=== PATIENT | female | born 1975 | race Caucasian/White ===

== ENCOUNTER 2018-07-24 07:15 | Inpatient (IN) | payer OTHER ==
[~2018-07-24] VITALS: Ht 162.6 cm; Wt 92.1 kg
[2018-07-24] MEDS ORDERED: CLONAZEPAM0.5 MG PO (08:59)
[2018-07-24] MEDS ORDERED: IBRA PO (08:59)
[2018-07-24] MEDS ORDERED: AMBIEN10 MG PO (08:59)
[2018-07-24] MEDS ORDERED: NEXIUM 24HR20 M1 PO (09:00)
[2018-07-24] MEDS ORDERED: VIBATIV750 MG PO (09:01)
[2018-07-24] MEDS ORDERED: MULTIVITAMINS1 EAC9 PO (09:01)
[2018-07-24] MEDS ORDERED: DOLOGESIC 500-1 EACH PO (09:01)
[2018-08-01] MEDS ORDERED: AVAPRO300 MG PO (15:11)
== END 2018-08-02 11:57 | DRG 734 ==
LOC: O/R 07-31 04:40 → OB/GYN 07-31 04:40 → SURH 07-31 07:00 → OB/GYN 07-31 13:12
PROVIDERS: ADMIT Obstetrics & Gynecology Gynecologic Oncology
PROC: 0UT9FZZ Resection of Uterus, Via Natural or Artificial Opening With Percutaneous Endoscopic Assistance (ICD-10-PCS; 2018-07-31)
PROC: 0UT7FZZ Resection of Bilateral Fallopian Tubes, Via Natural or Artificial Opening With Percutaneous Endoscopic Assistance (ICD-10-PCS; 2018-07-31)
PROC: 0UT2FZZ Resection of Bilateral Ovaries, Via Natural or Artificial Opening With Percutaneous Endoscopic Assistance (ICD-10-PCS; 2018-07-31)
PROC: 07TC4ZZ Resection of Pelvis Lymphatic, Percutaneous Endoscopic Approach (ICD-10-PCS; principal; 2018-07-31 07:00)
DX: C54.1 Malignant neoplasm of endometrium (principal); K50.90 Crohn's disease, unspecified, without complications; I10 Essential (primary) hypertension; R00.0 Tachycardia, unspecified